=== PATIENT | male | born 2000 | race Caucasian/White ===

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

== ENCOUNTER 2020-12-21 11:19 | Emergency (ER) | payer OTHER, MEDICAID ==
[~2020-12-21] VITALS: Ht 177.8 cm; Wt 69.5 kg
[2020-12-21 11:19] VITALS: BP 134/74
--- NOTE | 2020-12-21 11:39 | REP ---
INDICATION: trauma COMPARISON: None. TECHNIQUE: AP, lateral, bilateral oblique views right hand. FINDINGS: The osseous structures and joint spaces are intact and normal. There is no evidence for acute fracture or dislocation. Surrounding soft tissues are unremarkable. No subcutaneous emphysema or radiodense foreign body. IMPRESSION: . No acute fracture or dislocation. <Electronically signed by Jhonny Hermosillo > 12/21/20 [id number]
== END 2020-12-21 11:58 | disposition home or self-care (01) ==
LOC: M ED 11:19
DX: S69.91XA Unspecified injury of right wrist, hand and finger(s), initial encounter (principal); W23.0XXA Caught, crushed, jammed, or pinched between moving objects, initial encounter; Y92.89 Other specified places as the place of occurrence of the external cause; Y93.89 Activity, other specified; Y99.0 Civilian activity done for income or pay; Z88.0 Allergy status to penicillin

== ENCOUNTER 2021-09-21 10:13 | Emergency (ER) | payer OTHER ==
[~2021-09-21] VITALS: Ht 175.3 cm; Wt 65.9 kg
[2021-09-21 10:13] VITALS: BP 134/80
[2021-09-21] MEDS ORDERED: BOOSTRIX/ADACEL VACCINE (DIPHTH/PERTUSS/ACELL/TETANUS) 0.5ML SYR IM ONE (11:45)
== END 2021-09-21 12:14 | disposition home or self-care (01) ==
LOC: M ED 10:13
DX: S67.193A Crushing injury of left middle finger, initial encounter (principal); Y92.9 Unspecified place or not applicable; Y93.9 Activity, unspecified; Y99.9 Unspecified external cause status; Z88.1 Allergy status to other antibiotic agents; Z88.8 Allergy status to other drugs, medicaments and biological substances